=== PATIENT | female | born 1970 | race Caucasian/White ===

== ENCOUNTER 2017-12-14 09:31 | Outpatient (CLI) | payer BC ==
--- NOTE | 2017-12-14 11:17 | ULT ---
THYROID ULTRASOUND: INDICATIONS: Thyroid disease. Neck pain. COMPARISON: No prior comparison. FINDINGS: The right thyroid length is 3.3 cm, and the left thyroid length is 3.5 cm. There is a hypoechoic, so lid appearing nodule involving the lower aspect of the left thyroid lobe, measuring 6 mm. The thyroi d isthmus is 2 mm in thickness. IMPRESSION: Subcentimeter hypoechoic nodule in the left thyroid lobe. No dominant thyroid nodule is evident. POS: [facility]
--- NOTE | 2017-12-14 11:30 | ULT ---
PELVIC ULTRASOUND: Date: 12/14/17 HISTORY: Menorrhagia. COMPARISON: None. TECHNIQUE: Transabdominal and endovaginal imaging of the pelvis performed. Ovaries are interrogated with Stanley sc ana lilia, color flow, Doppler imaging, and spectral waveform analysis. FINDINGS: The uterus is identified, measuring 6.6 x 9.7 x 15.8 cm. There is heterogeneity throughout the myomet rium. There is a solid echotexture mass in the uterus measuring 6.9 x 7.0 x 8.8 cm. Evaluation of the endometrium is suboptimal. Ovaries are only appreciated on the transabdominal images. Right ovary measures 2.9 x 3.1 x 2.9 cm. Left ovary measures 3.3 x 2.5 x 3.1 cm. Note is made of a complex nabothian cyst measuring 1.2 cm. There is no free fluid. Ovarian Doppler: There is vascular flow to left and right ovary on transabdominal imaging. IMPRESSION: 1. Enlarged uterus. 2. Uterine leiomyoma as described above. Better evaluation with pelvic MRI and INSTRUCTIONAL SUPPORT SPECIALIST consultation is r ecommended. POS: [facility]
== END 2017-12-14 09:32 | disposition home or self-care (01) ==
LOC: SCSULT 09:31
PROVIDERS: ATTEND Nurse Practitioner Family
DX: N92.0 Excessive and frequent menstruation with regular cycle (principal); M54.2 Cervicalgia; K21.0 Gastro-esophageal reflux disease with esophagitis; E07.9 Disorder of thyroid, unspecified; E66.9 Obesity, unspecified; R11.0 Nausea; R53.82 Chronic fatigue, unspecified; N85.2 Hypertrophy of uterus; D25.9 Leiomyoma of uterus, unspecified; E04.1 Nontoxic single thyroid nodule
CPT/HCPCS: 76536; 76856

== ENCOUNTER 2018-01-15 09:24 | Outpatient (CLI) | payer BC, OTHER ==
[2018-01-15] MEDS ORDERED: ISOVUE-370 76%-LOCM 1 ML ONE (15:01)
== END 2018-01-15 09:25 | disposition home or self-care (01) ==
LOC: BICMAMMO 09:24
PROVIDERS: ATTEND Nurse Practitioner Family
DX: E78.5 Hyperlipidemia, unspecified (principal); E55.9 Vitamin D deficiency, unspecified; N92.0 Excessive and frequent menstruation with regular cycle; K21.0 Gastro-esophageal reflux disease with esophagitis; E66.9 Obesity, unspecified; E07.9 Disorder of thyroid, unspecified; R11.0 Nausea; R53.82 Chronic fatigue, unspecified; D73.89 Other diseases of spleen; D25.9 Leiomyoma of uterus, unspecified; Z80.0 Family history of malignant neoplasm of digestive organs
CPT/HCPCS: 71250; 71260; 74177; 77063; 77067

== ENCOUNTER 2018-01-21 14:44 | Outpatient (CLI) | payer BC | END 2018-01-21 14:45 | disposition home or self-care (01) | LOC: BICULT 14:44 | PROVIDERS: ATTEND Nurse Practitioner Family | DX: R59.0 Localized enlarged lymph nodes (principal) ==

== ENCOUNTER 2018-02-11 10:36 | Outpatient (CLI) | payer BC ==
[2018-02-11 11:33] LABS: Hemoglobin 13.8 g/dL (12.0-16.0); Mean Corpuscular HGB CONC 34.3 g/dL (32.0-36.0); Mean Corpuscular Hemoglobin 29.7 pg (27.0-31.0); Mean Corpuscular Volume 86.7 fl (81.0-99.0); Mean Platelet Volume 7.2 fL (7.4-10.4); Platelet Count 220 thou/uL (130-400); RBC Distribution Width 11.7 % (11.5-14.5); Red Blood Cell (RBC) Count 4.64 mill/uL (4.20-5.40); White Blood Cell (WBC) Count 6.6 thou/uL (4.8-10.8)
== END 2018-02-11 10:37 | disposition home or self-care (01) ==
LOC: LABBT 10:36
PROVIDERS: ATTEND Obstetrics & Gynecology
DX: Z01.812 Encounter for preprocedural laboratory examination (principal); D25.9 Leiomyoma of uterus, unspecified; N92.0 Excessive and frequent menstruation with regular cycle
CPT/HCPCS: 85027; 86850; 86900; 86901

== ENCOUNTER 2018-02-11 11:00 | Inpatient (IN) | payer BC ==
[2018-02-11 11:29] VITALS: BMI 26.5
--- NOTE | 2018-02-11 13:47 | HP ---
DATE OF PLANNED PROCEDURE: 02/12/2018 PREOPERATIVE DIAGNOSES: Abnormal uterine bleeding and fibroid uterus. PROCEDURES TO BE PERFORMED: Robotic-assisted total laparoscopic hysterectomy with bilateral salpinge ctomy, possible ExCITE procedure for extracorporeal morcellation. HISTORY OF PRESENT ILLNESS: Ms. Estrella Young is a 47-year-old , who was referred to me from Sheryl Lin last month for abnormal uterine bleeding and an enlarged uterus. The patient gave a 6-month history of change in her menstrual cycles. She reports her menses last 3-9 days, are very heavy. Sh shea soaks through pads and tampons at the same time and she soaks through them so fast she cannot leave her house during her menstrual cycle. The patient also reports routine menstrual accidents on her c ycle. She also complains of constant spotting even when she is not on her menstrual cycle. She augustina yed treatment and evaluation of this condition, as she was taking care of her , who had a rece nt diagnosis and treatment for colon cancer. The patient reports she is now ready for definitive man agement. The patient had a CT scan that showed an enlarged uterus, some questionable lesions on the spleen, which have since been evaluated and cleared by GI. The patient also had an ultrasound with a large fibroid uterus with images suspicious for degenerating fibroid with the fibroid is fundal and measuring approximately 8 x 8 cm. The uterus, otherwise, total length is approximately 12 cm long an d 9 cm wide. On ultrasound, the right and left adnexa appear normal. PAST MEDICAL HISTORY: Hyperlipidemia, hypothyroidism, diabetes. PAST SURGICAL HISTORY: Appendectomy and 2 C-sections. OBSTETRICAL HISTORY: Two sections. GYNECOLOGIC HISTORY: Most recent Pap smear 2017, negative for intraepithelial lesion or malignancy a nd negative for HPV. No history of STD or PID. SOCIAL HISTORY: The patient is not a smoker. She does not drink alcohol or consume drugs. She is m arried and sexually active. ALLERGIES: No allergies to latex. No medication allergies known. FAMILY HISTORY: Significant for diabetes in her mother, stroke in her father, colon cancer in her fa ther, and breast cancer in her mother. REVIEW OF SYSTEMS: Negative except per HPI. PHYSICAL EXAMINATION: VITAL SIGNS: Blood pressure 134/88, weight 170 pounds, BMI 34. GENERAL: No acute distress. Alert and oriented. CARDIOVASCULAR: Regular rate and rhythm. LUNGS: Nonlabored breathing. ABDOMEN: Soft, nontender, no obvious palpable masses, no hepatosplenomegaly. GENITOURINARY: Normal external female genitalia. Normal urethral meatus, normal vaginal mucosa, no cervical lesions. Uterus is enlarged, axial position, nontender, mobile. No adnexal masses. Perine um normal. MUSCULOSKELETAL: Normal. NEUROLOGIC: Grossly normal. SKIN: Normal. DIAGNOSTIC STUDIES: Ultrasound with uterus approximately 12-13 cm in length and 9 cm wide with a dom inant 8 x 8 cm fundal fibroid with characteristics of a degenerating fibroid noted. Endometrial biop sy benign endometrium with stromal breakdown, no malignancy noted. Pap smear 2018 negative with nega tive HPV. ASSESSMENT AND PLAN: Ms. Young is a 47-year-old with abnormal bleeding and a large fibroid uterus, w ho desires definitive management with a hysterectomy and bilateral salpingectomy. The risk of the pr ocedures had been described to her, the risks are to include, but not limited to bleeding, infection, need for blood products, possible emergent laparotomy, which would include extended recovery time. Other risks include damage to the intraabdominal organs or pelvic organs, inability to fully diagnose and treat all conditions at the time of surgery, and possible need for future medical or surgical ma nagement. The patient and her 's questions have been answered to their satisfaction, and she desires to proceed with the procedure as listed above. In addition, she has been offered and after school counselor ed for genetic screening by myself as well as Dr. Ferrer and at this time is awaiting genetic after school counselor ing.
[2018-02-12] MEDS ORDERED: CEFAZOLIN/Water 2 GM/20 ML SYRINGE ONE (10:21)
[2018-02-12] MEDS ORDERED: Gabapentin 300 MG CAP ONE (10:21)
[2018-02-12] MEDS ORDERED: CeleCOXIB 100 MG CAP ONE (10:32)
[2018-02-12] MEDS ORDERED: CeleCOXIB 100 MG CAP PO SCH (10:45)
[2018-02-12] MEDS ORDERED: Fentanyl 100 MCG/2 ML VIAL ONE ×2 (10:45→12:07)
[2018-02-12] MEDS ORDERED: Midazolam HCl 2 mg/2 ml Vial ONE ×2 (10:45→12:07)
[2018-02-12] MEDS ORDERED: Famotidine/PF 20 mg/2ml Vial ONE (11:58)
[2018-02-12] MEDS ORDERED: Fentanyl 250 MCG/5 ML VIAL ONE (12:07)
[2018-02-12] MEDS ORDERED: Ketamine 50 MG/ML VIAL ONE (12:18)
[2018-02-12] MEDS ORDERED: Bupivacaine/Epinephrine 0.25% 30 ML VIAL ONE (13:43)
[2018-02-12] MEDS ORDERED: Albumin 5% 500 ML ONE (13:43)
[2018-02-12] MEDS ORDERED: Promethazine HCl 25 MG/ML VIAL SLOW IVP PRN (14:39)
[2018-02-12] MEDS ORDERED: Meperidine HCl/PF 25 MG/ML VIAL SLOW IVP PRN (14:39)
--- NOTE | 2018-02-12 15:39 | CON ---
DATE OF CONSULTATION: 02/12/2018 REASON FOR CONSULT: Intraoperative consultation for bladder injury. CONSULTING PROVIDER: Dr. Ignacio Haile. HISTORY OF PRESENT ILLNESS: Ms. Young is a 47-year-old female, , with prior x2 undergoing robotic-assisted laparoscopic hysterectomy. There were dense adhesions along the uterine vesicle space, upon dissecting the uterus, vaginal cuff. There was inadvertent injury at the posterior wall of the bladder. Urologic consultation obtained secondary to bladder injury. PAST MEDICAL HISTORY: Hyperlipidemia, hypothyroidism, diabetes. PAST SURGICAL HISTORY: 1. Appendectomy. 2. x2. SOCIAL HISTORY: Negative x3. ALLERGIES: No known drug allergies. PHYSICAL EXAMINATION: Patient currently has a robot docked, gynecology is finishing up her hysterectomy closing her vaginal cuff. Inspection under robot console demonstrates a posterior dome bladder defect approximately 3-4 cm. See my full OP note for intraoperative findings. IMPRESSION AND PLAN: Ms. Young is a 47-year-old female with history of abnormal bleed secondary to large uterine fibroids. Urologic consultation secondary to iatrogenic bladder injury. will proceed with repair, see op note for full details. MTDD
[2018-02-12] MEDS ORDERED: Succinylcholine Chloride 20 MG/ML 10 ml SYRINGE FS ONE (16:20)
[2018-02-12] MEDS ORDERED: PHENYLEPHRINE-NS 100 MCG/ML 10 ML SYRINGE ONE (16:20)
[2018-02-12] MEDS ORDERED: Ondansetron HCl/PF 4 MG/2 ML Vial ONE (16:20)
[2018-02-12] MEDS ORDERED: Esmolol 100 MG/10 ML VIAL ONE (16:20)
[2018-02-12] MEDS ORDERED: Dexamethasone 20 MG/5 ML VIAL ONE (16:20)
[2018-02-12] MEDS ORDERED: Lidocaine 1% PF 5 ML VIAL ONE (16:20)
[2018-02-12] MEDS ORDERED: PROPOFOL 200 MG/20 ML VIAL ONE (16:20)
[2018-02-12] MEDS ORDERED: Glycopyrrolate 0.2 MG/ML 5 ML SYRINGE ONE (16:20)
[2018-02-12] MEDS ORDERED: Bupivacaine HCl 0.5%/Epinephrine 1:200,000/PF 30 ml Vial ONE (16:24)
[2018-02-12] MEDS ORDERED: Ketorolac Tromethamine 30 MG/ML VIAL IVP SCH (18:00)
[2018-02-12] MEDS ORDERED: diphenhydrAMINE 25 MG CAP PO PRN (18:11)
[2018-02-12] MEDS ORDERED: Zolpidem Tartrate 5 MG TAB PO PRN (18:11)
[2018-02-12] MEDS ORDERED: traMADol HCl 50 MG TAB PO PRN (18:11)
[2018-02-12] MEDS ORDERED: Bisacodyl 10 MG SUPP PR PRN (18:11)
[2018-02-12] MEDS ORDERED: Promethazine HCl 25 MG/ML VIAL IM PRN (18:11)
[2018-02-12] MEDS: Morphine 4 MG/ML VIAL SLOW IVP PRN (18:22)
--- NOTE | 2018-02-12 18:38 | OP ---
DATE OF PROCEDURE: 02/11/2018 PREOPERATIVE DIAGNOSIS: Bladder injury. POSTOPERATIVE DIAGNOSIS: Bladder injury. PROCEDURE: Robotic-assisted laparoscopic bladder repair. SURGEON: Eryn Holliday D.O. ANESTHESIA: General. COMPLICATIONS: None apparent. Drains : Circular drain to lower quadrant 1 20 Swedish three-way 30 mL Pradhan catheter to gravity, CBI port plugged INDICATIONS FOR THE PROCEDURE: Ms. Young is a 47-year-old female undergoing robotic-assisted laparoscopic hysterectomy, there were dense adhesions found along the posterior dome of the bladder, iatrogenic bladder injury of 3-4 cm bladder defect noted. Urologic consultation secondary to above. DESCRIPTION OF THE PROCEDURE: Patient currently undergoing repair of her vaginal cuff. I did take over the console of robot inspecting her pelvis. At the posterior wall dome region, there is a defect approximately 3-4 cm transverse cystotomy. The vaginal cuff has been closed by Gynecology. Inspection of the intraluminal bladder demonstrates trigone is well away from the defect, bilateral clear efflux of urine is noted. At this time, the preexisting Pradhan catheter was removed , to evaluate the bladder intraluminal daily. Bladder defect was closed in 2 layers, initial layer with the mucosa closed with 2-0 chromic in a continuous fashion, second layer closed with 2-0 Vicryl imbricating. A new Pradhan catheter 20 Swedish three-way was placed, balloon with 30 mL of sterile water and approximately 250 mL was filled with no evidence of leak noted. Drain in the pelvic region is recommended after uterus is been delivered. I recommended interposition with omentum or peritoneal flap between the overlying sutures of the bladder cystotomy suture line and the vaginal cuff closure. Instead Interceed adhesion barrier was placed by gynecology between the suture line/with FloSeal subsequently. Patient will need to be monitored for VV fistula formation, as this is best prevented with biologic interposition. MTDD
[2018-02-12] MEDS: Lactated Ringer's 1,000 ML IV SCH (20:12)
[2018-02-12] MEDS: Sodium Chloride 0.9% 1,000 ML IV SCH (20:30)
[2018-02-12] MEDS: Docusate 100 MG CAP PO SCH (20:33)
[2018-02-12] MEDS: Ondansetron HCl/PF 4 MG/2 ML Vial IVP PRN (20:33)
[2018-02-12] MEDS ORDERED: Ibuprofen 800 MG TAB PO SCH (22:00)
--- NOTE | 2018-02-12 22:02 | PDOC.EVN ---
Event Note - Event Note Event Note: POD#0 S: pt reports she feels very well, had some mild nausea w liquids but had a cracker, no fever/chills, no questions about surgery today O: Vital Signs (12 hours) Temp Pulse Resp BP Pulse Ox 02/12/18 20:58 99.0 F 105 H 18 134/67 95 02/12/18 20:49 89 18 123/65 99 02/12/18 18:50 85 121/65 98 02/12/18 18:44 98.3 F 95 18 126/66 96 02/12/18 18:13 97.8 F 94 20 117/67 95 02/12/18 17:42 98.5 F 95 20 116/63 92 L Weight Weight 150 lb Gen: A and O, NAD Lungs: nonlabored breathing Abd: nondistended, appropriate TTP, incision CDI x 4, JASBIR w min fluid noted/ serosang Ext: SCDs to BLE A/P: POD #0 RATLH/BS w repair of incidental cystotomy. Overall doing very well and pt with out concerns. Discussed plan of care, possible DC tomorrow afternoon if post op goals are met and pt OK w DC per urology. Post op plans include poss JASBIR DC prior to DC vs DC in our office Sunday, levoquin 500mg Q day and ricks to gravity until removed by urology.
--- NOTE | 2018-02-12 22:41 | OP ---
DATE OF PROCEDURE: 02/12/2018 PROCEDURES PERFORMED: 1. Robotic-assisted total laparoscopic hysterectomy with bilateral salpingectomy, extracorporeal [place] rine morcellation through self-contained bag. 2. Repair of incidental cystotomy. SURGEON: Ignacio Haile DO OVEN ROASTER: Dick Almaguer MD INTRAOPERATIVE CONSULT: Eryn Holliday DO, Urology. ANESTHESIA: GETA with tap block prior to case. ESTIMATED BLOOD LOSS: 75 mL URINE OUTPUT: 100 mL approximately. COMPLICATIONS: Incidental cystotomy repaired by Urology. INTRAOPERATIVE FINDINGS: 1. Large fibroid uterus that sounds to 14 cm with a dominant 8-cm fundal fibroid. 2. Normal appearing tubes and ovaries bilaterally. 3. Vaginal cuff hemostatic. 4. Approximate 2-1/2 to 3-cm bladder cystotomy repaired in [address] Holl[address]. PROCEDURE DETAILS: The patient was taken back to the OR with IV fluids running. Once she was in the operating room, she was placed in dorsal supine position and general anesthesia was obtained. Of no te, the patient received a tap-block procedure prior to the start of the case. Once the patient was asleep, she was placed in low dorsal lithotomy position and the abdomen and vagina were prepped and d raped in normal fashion for gynecologic surgery. A Pradhan catheter was placed into the bladder, which drained approximately 50 mL of urine and the Pradhan tip was then attached to Ivet Syringe for bladd er manipulation during the case. An operative speculum was placed into the vagina, a single-tooth te naculum was used to grasp the anterior lip of the cervix. Cervix was serially dilated and the uterus then sounded to approximately 14 cm. A Dish.fm manipulator was assembled with a 12-cm tip and a 3. 5-cm cup, it was then placed into the uterus and the vagina in normal fashion with intrauterine and i ntravaginal balloons inflated. Once the manipulator was then placed, the operative speculum and sing le tooth tenaculum were removed. The surgeon's gloves were changed and attention was turned to lapar oscopic portion of the case. Beginning approximately 2 cm above the umbilicus, a 12-mm vertical inci jose luis was made. The skin incision was made with the scalpel. A Veress needle was then placed through this incision and the abdomen was insufflated without difficulty. Once the abdomen was insufflated, a 12-mm trocar was placed through this incision. The laparoscope was then placed through this port with the above findings noted. At this point, the decision was made to extend the fascial layer of t he supraumbilical incision as bag morcellation would be necessary to complete a minimally invasive hy sterectomy. The laparoscope was removed. The fascia was extended the full length of the 3-cm skin i ncision and a mini Nazario retractor was placed through this incision. Once the Nazario retractor was placed and the retractor was inspected and noted to be against the abdominal wall. The GelPOINT was assembled over the retractor and the abdomen was reinsufflated. A 12-mm trocar was through the GelPO INT at the supraumbilical incision to be used as the camera port. With the camera reinserted through the trocar to the GelPOINT, the left and right lower quadrant 8 mm trocars were placed under direct visualization as well as a right upper quadrant 11-mm trocar. Once all 4 trocars were placed, the ro botic arms were docked and the instruments were placed under laparoscopic view into the field of diss ection. While the uterus was large, it was noted to be very mobile and the cervix could be visualize d as well as the uterine arteries and ureters. Beginning on the patient's left side, the left fallop so tube was elevated, it was cauterized and transected from the uterus and removed from the operativ e field for pathologic review. Once the left fallopian tube was removed, the left utero-ovarian liga ment was cauterized and transected, freeing the left ovary from the uterus that can fall away to the pelvic sidewall. The left round ligament was then cauterized and transected. It was then divided in to anterior and posterior leafs down towards the level of the uterine artery. Next, the anterior nicole f of the broad ligament was taken down towards the cervical vaginal junction. The bladder was back f illed with normal saline and the margins of the bladder were visually identified and the bladder flap on the patient's right side was dissected down layer by layer until the cervix was reached. Next, a ttention was turned to the patient's contralateral side. In similar fashion, the right fallopian tub e was transected and removed. The right utero-ovarian ligament was cauterized and transected, freein g the right ovary from the uterus. The right round ligament was cauterized and transected, it was th en divided into anterior and posterior leafs and dissected down towards the level of the uterine evert ry. After the uterine artery had been skeletonized. The bladder flap was taken down on the patient' s right side, the adhesions of the bladder to the uterus were noted to be asymmetric with dense adhes ions of the bladder to the cervix on the patient's right side. The monopolar scissors were used to f inally dissect some of the adhesions down on the patient's right side to allow for adequate dissectio n around the uterine artery. Once these were taken down and the uterine artery fully visualized, it was cauterized and transected. Attention was then turned to the contralateral side where the uterine arteries on the patient's left side were cauterized and transected. Once the blood supply had been taken down, attention was turned anteriorly to completing the bladder dissection. The bladder was ag ain backfilled with the margins of the bladder adhesions noted to be asymmetric with dense scarring o n the patient's right side. While special attention and care was given to dissecting the bladder nathaniel y from the cervix and the planned colpotomy site, an incidental cystotomy was created. Immediately t he Pradhan tip was visualized and the urologist manager implementation, Dr. Eyrn Holliday was notified. She was m marc aware of the cystotomy in our plan to complete the hysterectomy portion of the procedure when she would present later to help us complete the cystotomy repair. After she was notified, the remaining portion of the bladder adhesions were taken down off the cervix and the planned colpotomy site with the rest of the bladder dissected well away from the planned colpotomy site, the colpotomy was perfor med by using monopolar scissors circumferentially around the cervix. Once this was completed, intrau terine balloon was deflated, the vaginal balloon was deflated, and the MIMI manipulator was removed f rom the surgical field. The uterine specimen was left in the abdominal cavity until it could later b e placed into the self-containing bed for morcellation. The surgical pedicles and vaginal cuff were irrigated and any small areas of bleeding were controlled with the bipolar fenestrated grasper. The needle corporate driver was introduced into the surgeon's right hand after the monopolar scissors were removed. A Stratafix suture was placed into the operating field and the vaginal cuff was closed in 2 layers with good hemostasis noted. After the vaginal cuff was closed, Dr. Holliday presented for evaluat ion of the cystotomy. Please see her dictation for full details of the cystotomy repair, which she c ompleted by closing the cystotomy in 2 layers. We also discussed intraoperative measures to decrease the risk of complications from the cystotomy including placement of adhesion barrier, placement of h emostatic agents, and possible graft with omental tissue. She did spend some time trying to access o mental tissue; however, the limits of the anatomy and the positioning of the patient for hysterectomy made this difficult to accomplish without placing increased risk on the patient. For this reason, lisa valdivia placed an Interceed layer between the vaginal cuff and the bladder. The Interceed filled the space very well and we felt that it would remain in place for the appropriate amount of time. Next, the c amera was temporarily undocked. The specimen bag was placed through the supraumbilical incision. Th e camera was redocked and the abdomen reinsufflated. The bag was positioned next to the uterine spec imen and opened, the uterus and cervix were then placed into the bag. The bag was then cinched close d and the bag marker was then retracted up through the supraumbilical incision site. Once the hyster ectomy portion of the procedure and cystotomy repair were complete, the robotic arms were undocked. The GelPOINT was removed from the supraumbilical incision and the specimen bag was brought up through 3-mm incision. A plastic guard was placed to protect the skin and extracorporeal morcellation was c ompleted, removing the uterus and fibroid specimen entirely to the self-contained bag. Once morcella tion portion of the procedure was completed and the bag and Nazario retractors were removed, the 12-mm trocar was placed back through the supraumbilical incision. The abdomen was reinsufflated and FloSe al was placed under direct visualization over the vaginal cuff and cystotomy repair. Of note, no blo od was noted to have accumulated within the pelvis or other fluid noted to have accumulated in the pe lvis. Prior to the completion of the case, a JASBIR-drain was placed into the cul-de-sac at the request of Dr. Holliday. After this was placed, all instruments were removed from the abdomen. The instr ument and sponge counts were correct x2. The patient was taken out of Trendelenburg position. The f ascia was closed at the supraumbilical incision with Vicryl suture. All 4 skin incisions were closed with 4-0 Monocryl with the exception of the right lower quadrant, which was partially closed with 4- 0 Monocryl and a stay suture placed around the drain. The patient tolerated the procedure well. At the end of the case, the vagina was inspected with no bleeding noted. The Pradhan catheter was drainin g clear urine. The patient was cleaned, dried, taken out of lithotomy position and extubated. She w as then sent to recovery room in good condition. Postoperative findings as well as the cystotomy wer e discussed with her family members in detail. We discussed the need for the Pradhan to stay in the bl adder postoperatively per urology's recommendations. We also discussed testing that would be done pr ior to the discontinuation of the Pradhan. The patient's family members' questions were answered.
[2018-02-13] MEDS: Morphine 4 MG/ML VIAL SLOW IVP PRN ×2 (01:18→08:35)
[2018-02-13] MEDS: Lactated Ringer's 1,000 ML IV SCH (03:54)
[2018-02-13] MEDS: Sodium Chloride 0.9% 1,000 ML IV SCH (04:39)
[2018-02-13 05:45] LABS: Hemoglobin 11.6 g/dL (12.0-16.0); Mean Corpuscular HGB CONC 34.5 g/dL (32.0-36.0); Mean Corpuscular Hemoglobin 29.9 pg (27.0-31.0); Mean Corpuscular Volume 86.7 fl (81.0-99.0); Mean Platelet Volume 7.1 fL (7.4-10.4); Platelet Count 179 thou/uL (130-400); RBC Distribution Width 11.6 % (11.5-14.5); Red Blood Cell (RBC) Count 3.87 mill/uL (4.20-5.40); White Blood Cell (WBC) Count 9.9 thou/uL (4.8-10.8)
[2018-02-13 06:02] LABS: Anion Gap 10 mmol/L (10-20); BUN (Urea Nitrogen) 7 mg/dL (7.0-18.7); Calc. Creatinine Clearance 103 mL/min (70-130); Calcium 8.7 mg/dL (7.8-10.44); Carbon Dioxide 24 mmol/L (22-29); Chloride 106 mmol/L (98-107); Estimated GFR-MDRD 86; Glucose 129 mg/dL (70-105); Potassium 4.2 mmol/L (3.5-5.1); Sodium 136 mmol/L (136-145)
[2018-02-13] MEDS: Ondansetron HCl/PF 4 MG/2 ML Vial IVP PRN (06:05)
[2018-02-13] MEDS ORDERED: Metoclopramide HCl 10 MG/2 ML VIAL IVP PRN (08:27)
[2018-02-13] MEDS ORDERED: Acetaminophen 1,000 MG in Premix Bag 1 BAG IVPB PRN (09:33)
[2018-02-13] MEDS ORDERED: Sodium Chloride 0.9% 1,000 ML IV SCH (09:45)
[2018-02-13] MEDS ORDERED: Scopolamine 1.5 mg/72 hour Patch TD SCH (10:00)
[2018-02-13] MEDS ORDERED: Lactated Ringer's 1,000 ML IV SCH (10:00)
[2018-02-13] MEDS ORDERED: Pantoprazole 40 MG VIAL IVP SCH ×2 (10:02→10:30)
[2018-02-13 10:05] LABS: Hemoglobin A1c 6.3 % (4.0-6.0)
[2018-02-13] MEDS ORDERED: Cepastat Lozenges 1 LOZ PO PRN (10:05)
--- NOTE | 2018-02-13 10:29 | PRG ---
DATE OF SERVICE: 02/13/2018 TIME: 9:30 a.m. SUBJECTIVE: The patient is resting comfortably. She has had significant nausea and vomiting overnig ht, uncontrolled with Zofran. She this morning received some IV Phenergan and IV morphine and that h elped her to sleep and she is currently not nauseous. She states her pain is well controlled. She h as not passed any flatus. She has more bothersome pain in her chest and a sore throat. She has no p alpitations or shortness of breath. She was previously on O2 overnight and this has been weaned, sat s are 96%. However, the patient is slumped down in the bed. She has been unable to tolerate liquids or crackers at this point. OBJECTIVE: VITAL SIGNS: T-max and T-current are 99.5. Pulse is 74, respirations 16, sats 96% on room air, bloo d pressure 106/61. I&O is intake 1525, output total of 1280 including 180 mL of serosanguineous flui d from the right lower quadrant JASBIR drain, 900 mL of urine. GENERAL: No acute distress, alert and oriented x3. HEART: Regular rate and rhythm. LUNGS: Slightly decreased breath sounds in the bilateral basilar lung bilaterally. ABDOMEN: Soft and appropriately tender, nondistended. Bowel sounds are decreased. Incisions are cl criselda, dry, and intact with a JASBIR drain in the right lower quadrant. EXTREMITIES: SCDs in place. No edema, cyanosis or clubbing. LABORATORY DATA: Hemoglobin this morning is 11.6, hematocrit 33.6, platelets 179, white count 9.9. Blood sugars have been 171, 169 and fasting this morning was 129, creatinine is 0.72. ASSESSMENT AND PLAN: This is a 47-year-old status post robotic assisted total laparoscopic hysterect anival, bilateral salpingectomy with incidental cystotomy status post repair. Her vital signs are stabl e and within normal limits. 1. Hemoglobin appropriate postoperatively. No evidence of ongoing bleeding or anemia. 2. Gastrointestinal. The patient is unable to tolerate liquids. We will continue IV hydration and place a scopolamine patch, I have also written for richard Dickerson and her home Protonix. She will be advanced to clears once she is not nauseous and can be advanced as tolerated. I discussed with the p atient that ambulation will help with return to GI function. She is also on Colace b.i.d. for a supriya l regimen. 3. : Status post repair by Dr. Holliday, will discuss with her plan regarding JASBIR drain and disc harge, will be for prolonged catheterization for healing and she is on prophylactic p.o. Levaquin; amanda albright, is not tolerating this at this time, may need an IV dose for today's dosing. She is also star rod on Myrbetriq 50 mg for bladder spasms. 4. Endo: Type 2 diabetes, previously controlled on diet. However, recently had been restarted on m etformin. I have checked a hemoglobin A1c. Sugars are okay. At this point, we will use sliding sca le insulin if needed. 5. Respiratory: I feel the patient has some atelectasis. Encourage incentive spirometer use as wel l as ambulation for this. I discussed risk of pneumonia if prolonged immobilization. 6. Pain: Will use IV Tylenol and p.r.n. Tylenol #3 and tramadol once the patient is tolerating p.o. , well controlled. 7. Sequential compression devices currently in place, ambulate for DVT prophylaxis. 8. Continue current inpatient care.
[2018-02-13] MEDS: Docusate 100 MG CAP PO SCH ×2 (10:31→21:51)
--- NOTE | 2018-02-13 12:05 | PRG ---
DATE OF SERVICE: 02/13/2018 SUBJECTIVE: Pain is adequately controlled, did have an episode of emesis, + nausea. PHYSICAL EXAMINATION: VITAL SIGNS: Stable, 99.5, 74, 16, 106/61. I's and O's. JASBIR output 180. Urine output is clear, 900. ABDOMEN: Soft. No rigidity, no rebound. GENITOURINARY: Catheter draining clear dilute urine. JASBIR is serosanguineous. PERTINENT LABORATORY DATA: Creatinine 0.72. White count 9.9, 11.6 hemoglobin, preop hemoglobin is 13.8. IMPRESSION AND PLAN: Ms. Young is a 47-year-old female with history of dysfunctional bleed secondary to large uterine fibroid, status post robotic assisted laparoscopic hysterectomy, BSO, urologic consultation obtained intraoperatively due to iatrogenic bladder injury, POD#1 status post laparoscopic robotic-assisted repair. Urine output is clear. I did hold her Motrin and Toradol as recently underwent bladder repair to prevent gross hematuria and clot retention. As her pain is controlled with current regimen, I would continue pain management as is. Decrease in H&H, likely multifactorial. continue to monitor JASBIR output. Recommend follow up CBC. Postoperative ileus. Recommend continuation of clear liquid diet, patient to be out of bed. Will need followup cystogram in 2-3week interval prior to catheter removal. I will manage her JASBIR and will remove when clinically indicated, will check JASBIR creatinine prior to removal. MTDD
[2018-02-13] MEDS: Acetaminophen/Codeine 30-300mg Tablet PO PRN ×3 (12:30→21:50)
[2018-02-13] MEDS ORDERED: Ondansetron ODT 4 MG TAB PO PRN (17:12)
[2018-02-13] MEDS: Simethicone Chewable 80 MG TAB PO PRN (17:17)
[2018-02-14 04:56] LABS: #Eosinphils 0.1 thou/uL (0.0-0.7); #Lymphocytes 1.9 thou/uL (1.20-3.40); #Monocytes 0.5 thou/uL (0.11-0.59); #Neutrophils 4.2 thou/uL (1.40-6.50); %Basophils 0.2 % (0.0-1.0); %Lymphocytes 28.1 % (21.0-51.0); %Monocytes 7.9 % (0.0-10.0); %Neutrophils 61.8 % (42.0-75.0); Hemoglobin 11.2 g/dL (12.0-16.0); Mean Corpuscular HGB CONC 33.5 g/dL (32.0-36.0); Mean Corpuscular Hemoglobin 29.4 pg (27.0-31.0); Mean Corpuscular Volume 87.6 fl (81.0-99.0); Mean Platelet Volume 6.9 fL (7.4-10.4); Platelet Count 175 thou/uL (130-400); RBC Distribution Width 11.8 % (11.5-14.5); Red Blood Cell (RBC) Count 3.83 mill/uL (4.20-5.40); White Blood Cell (WBC) Count 6.7 thou/uL (4.8-10.8)
[2018-02-14] MEDS ORDERED: Levothyroxine Sodium 25 MCG TAB PO SCH (06:00)
[2018-02-14] MEDS: Acetaminophen/Codeine 30-300mg Tablet PO PRN ×2 (06:28→12:39)
--- NOTE | 2018-02-14 08:14 | PRG ---
DATE OF SERVICE: 02/14/2018 SUBJECTIVE: The patient is feeling better, has passed gas, tolerating regular diet. OBJECTIVE: VITAL SIGNS: Stable. She is afebrile. I's and O's. JASBIR output 270 over 24 hours last 12 hours 100 mL, previously serosanguineous. It is cleared up, pink tinged. ABDOMEN: Soft, nontender, nondistended. LABORATORY DATA: CBC is stable. Creatinine yesterday was normal at 0.72. IMPRESSION AND PLAN: 1. Ms. Young is a pleasant 47-year-old female postop day #2 status post robotic assisted repair of cystotomy. Pradhan catheter is draining clear yellow urine. This is transitioned to a gravity bag leg bag. The patient instructed regarding leg bag gravity bag use. We will send JASBIR creatinine, if negative, we will pull JASBIR prior to discharge. I discussed with the patient in lengthy detail regarding importance of catheter care; in which no kinking and gravity drainage is advised to expedite healing. 2. Avoid constipation. The patient has limited pain, I do not prefer Tylenol # 3 as due to severe constipating side effects. Pain is controlled with tramadol. She may be discharged with tramadol, Tylenol p.r.n. Recommend discharge with Myrbetriq 50 mg one p.o. daily until followup appointment, please provide #30, ciprofloxacin for a course of 7 days, Colace 100 mg 1 p.o. b.i.d. I will communicate with nursing staff regarding JASBIR creatinine level, if negative for urine leak, recommend JASBIR removal before discharge. Nursing staff will contact me regarding disposition for coordination of follow up with , in which cystogram will be scheduled a.m. of appointment. Addendum: JASBIR creatinine negative therefore removed prior to discharge. follow -up appointment in chart in 2 weeks with cystogram a.m. of appointment. HILARIO
[2018-02-14] MEDS ORDERED: Pantoprazole 40 MG VIAL IVP SCH (09:00)
[2018-02-14] MEDS: Docusate 100 MG CAP PO SCH (09:30)
[2018-02-14 11:49] VITALS: BP 121/74; TEMP 98.1
[2018-02-14] MEDS: Simethicone Chewable 80 MG TAB PO PRN (12:41)
--- NOTE | 2018-02-14 13:36 | DIS ---
DATE OF ADMISSION: 02/12/2018 DATE OF DISCHARGE: 02/14/2018 ADMISSION DIAGNOSES: 1. Uterine fibroids. 2. Abnormal uterine bleeding. DISCHARGE DIAGNOSES: Status post robotic-assisted total laparoscopic hysterectomy, bilateral salping ectomy, extracorporeal morcellation, and repair of cystotomy with JASBIR drain placement by Urology. DISCHARGE CONDITION: Stable. ATTENDING PHYSICIAN: Maude Wilson M.D. CONSULTATIONS: Dr. Holliday with Urology for intraoperative cystotomy and postoperative care. PROCEDURES: As listed in discharge diagnosis. HISTORY AND PHYSICAL: Please see previously dictated H and P. HOSPITAL COURSE: This is a 47-year-old with uterine fibroids and heavy vaginal bleeding, presented t o undergo scheduled surgery as listed above. She had an intraoperative cystotomy encountered and a p rimary repair by Dr. Holliday. Postoperatively, the patient went to the floor. She was initially controlled with IV morphine for pain. She had significant nausea and vomiting on postoperative day 0 to the morning of postoperative day #1. This is finally controlled after Zofran, Reglan, and a sco polamine patch. The patient was able to ambulate without difficulty or signs or symptoms of anemia. She was also able to tolerate liquids and be transitioned to a regular diet on postoperative day #1. Her Pradhan catheter was left in place secondary to cystotomy and she has plans for discharge with Fo naila leg bag and follow up with Dr. Holliday for cystogram in 2-3 weeks. The patient was started o n p.o. Levaquin and Myrbetriq by Dr. Holliday for bladder injury and we will continue this as an o utpatient as well. Her vital signs remain within normal limits except a slightly decreased saturatio n at night and the patient was given incentive spirometer, as it was felt she likely had some atelect asis. She does have a history of type 2 diabetes controlled with diet and her hemoglobin A1c was 6.3 . Her blood sugars were fairly normal during her hospital stay and she was given instructions to mon itor this at home and continue her dietary interventions and follow up with primary doctor should her blood sugar persistently be over 150. Her hemoglobin after surgery was 11.6 and 11.2 on postoperati ve days 1 and 2 respectively. Her chemistries were normal. On the day of discharge, Dr. Holliday melissa a JASBIR drain creatinine level that was 0.66, and she will follow up on this and manage the drain. Her exam was benign. She had a regular rate and rhythm, and her lungs were clear to auscultation. Her abdomen was soft and nondistended with bowel sounds present and appropriate tenderness. Her inc isions were clean, dry, and intact and she had no edema, cyanosis, or clubbing of the extremities. S he is dispositioned for discharge on postoperative day #2 with discharge medications for tramadol, My rbetriq, and Levaquin. She has scheduled appointment with Dr. Haile in [address] Miya dean n 2-3 weeks per the patient and her final pathology is pending at the time of discharge.
== END 2018-02-14 16:20 | disposition home or self-care (01) | DRG 742 ==
LOC: SURG A 02-12 09:43 → 3SE 02-12 17:22
PROVIDERS: ADMIT Obstetrics & Gynecology; ATTEND Obstetrics & Gynecology
PROC: 0UT98ZZ Resection of Uterus, Via Natural or Artificial Opening Endoscopic (ICD-10-PCS; principal; 2018-02-12)
PROC: 0UT78ZZ Resection of Bilateral Fallopian Tubes, Via Natural or Artificial Opening Endoscopic (ICD-10-PCS; 2018-02-12)
PROC: [UNRECOGNIZED PROCEDURE] (2018-02-12)
PROC: 0TQC4ZZ Repair Bladder Neck, Percutaneous Endoscopic Approach (ICD-10-PCS; 2018-02-12)
PROC: 8E0W8CZ Robotic Assisted Procedure of Trunk Region, Via Natural or Artificial Opening Endoscopic (ICD-10-PCS; 2018-02-12)
DX: D25.9 Leiomyoma of uterus, unspecified (principal); S37.23XA Laceration of bladder, initial encounter; E78.5 Hyperlipidemia, unspecified; E03.9 Hypothyroidism, unspecified; E11.9 Type 2 diabetes mellitus without complications; N93.9 Abnormal uterine and vaginal bleeding, unspecified; Z79.84 Long term (current) use of oral hypoglycemic drugs; X58.XXXA Exposure to other specified factors, initial encounter; Y92.234 Operating room of hospital as the place of occurrence of the external cause; Y95 Nosocomial condition
CPT/HCPCS: 36415; 36416; 80048; 82570; 83036; 85025; 85027; 88307; A4216; C9113; J0131; J0670; J1100; J1885; J2001; J2250; J2270; J2405; J2550; J2704; J2765; J3010; P9045; Q0162; S0028

== ENCOUNTER 2018-02-20 16:07 | Observation (INO) | payer BC ==
[~2018-02-20 16:07] MED LIST: ISOVUE-370 76%-LOCM 1 ML ONE; Iopamidol 370 76% 50 ML VIAL FS ONE
[2018-02-20] MEDS ORDERED: Ondansetron ODT 4 MG TAB ONE ×2 (16:36→18:41)
[2018-02-20 16:50] LABS: Bilirubin Negative (Negative); Blood, Urine Large (Negative); Clarity CLOUDY (Clear); Glucose, Urine (Dipstick) Negative (Negative); Leukocyte Small (Negative); Nitrite Negative (Negative); Protein, Urine (Dipstick) 100 mg/dL (Neg-Trace); Specific Gravity, Urine 1.026 (1.002-1.036); Urobilinogen 0.2 mg/dL (0.2-1.0)
[2018-02-20 16:53] LABS: Bacteria/HPF None Seen HPF (None Seen); RBC/HPF GREATER THAN 50-TNTC HPF (0-3); Squamous Epithelial 0-3 HPF (0-3)
[2018-02-20 16:54] LABS: Pathc Cast-AUWi Flag 2.76 (0-2.49)
[2018-02-20 17:02] LABS: Hyaline Casts/LPF 0-3 HYALINE CAST LPF (0-3 Hyaline)
[2018-02-20 17:03] LABS: Other Casts/LPF None Seen LPF (0-3 Hyaline)
[2018-02-20 17:04] LABS: Crystals/HPF RARE CA OXALATE HPF (Negative); Renal Epithelial 0-3 HPF (0-3); Transitional Epithelial 0-3 HPF (0-3)
[2018-02-20 17:05] LABS: #Eosinphils 0.4 thou/uL (0.0-0.7); #Lymphocytes 1.5 thou/uL (1.20-3.40); #Monocytes 1.1 thou/uL (0.11-0.59); #Neutrophils 10.5 thou/uL (1.40-6.50); %Basophils 0.3 % (0.0-1.0); %Eosinophils 2.9 % (0.0-10.0); %Lymphocytes 11.3 % (21.0-51.0); %Monocytes 7.8 % (0.0-10.0); %Neutrophils 77.7 % (42.0-75.0); Hemoglobin 13.2 g/dL (12.0-16.0); Mean Corpuscular HGB CONC 34.3 g/dL (32.0-36.0); Mean Corpuscular Hemoglobin 29.4 pg (27.0-31.0); Mean Corpuscular Volume 85.7 fl (81.0-99.0); Mean Platelet Volume 6.9 fL (7.4-10.4); Platelet Count 262 thou/uL (130-400); RBC Distribution Width 11.5 % (11.5-14.5); White Blood Cell (WBC) Count 13.6 thou/uL (4.8-10.8)
[2018-02-20 17:32] LABS: ALT (SGPT) 7 U/L (8-55); AST (SGOT) 9 U/L (5-34); Albumin 4.1 g/dL (3.5-5.0); Alkaline Phosphatase 68 U/L (40-150); Anion Gap 14 mmol/L (10-20); BUN (Urea Nitrogen) 8 mg/dL (7.0-18.7); Bilirubin, Total 0.6 mg/dL (0.2-1.2); Calc. Creatinine Clearance 0 mL/min (70-130); Calcium 9.4 mg/dL (7.8-10.44); Carbon Dioxide 21 mmol/L (22-29); Chloride 99 mmol/L (98-107); Estimated GFR-MDRD 80; Globulin 3.4 g/dL (2.4-3.5); Glucose 156 mg/dL (70-105); Lipase 9 U/L (8-78); Protein, Total 7.5 g/dL (6.0-8.3); Sodium 130 mmol/L (136-145)
--- NOTE | 2018-02-20 20:07 | CT ---
CT ABDOMEN AND PELVIS WITH IV CONTRAST: 02/20/18 Multiple axial tomograms obtained through the abdomen and pelvis with IV enhancement. INDICATIONS: Abdominal pain. Hysterectomy eight days ago with colostomy repair. Discharged from the hospital on . No comparison studies. The lung bases are clear. There is a 3.5 cm low density lesion along the superior border of the spleen. There are numerous othe r tiny low density foci within the spleen which are mostly subcentimeter with one in the inferior spl een measuring up to 1 cm. The liver and pancreas are unremarkable. Adrenal glands are normal. Kidneys appear normal. Small bowel loops normal caliber. Images through the low abdomen and pelvis reveal inflammatory changes involving the sigmoid colon. Fo naila catheter is in place and bladder is contracted. There is a low density collection in the deep pelvis along the sigmoid which is extraluminal, best ap preciated on coronal images. There are gas pockets within this fluid dense collection. This collectio n measures 3.4 x 1.8 cm in the coronal plane. Considerations include hematoma and abscess. IMPRESSION: 1. Inflammatory changes in the deep pelvis along the sigmoid colon, some of which may be postope rative in nature. There is an extraluminal fluid dense collection with tiny gas pockets present adjac ent to the mid sigmoid. Findings are concerning for developing abscess. 2. There are abnormal low density lesions in the spleen. The largest along the superior margin o f the spleen measures 3.5 cm. These numerous low density foci are concerning for septic emboli. Code T POS: RICK
[2018-02-20] MEDS ORDERED: diphenhydrAMINE 25 MG CAP PO PRN (20:31)
[2018-02-20] MEDS ORDERED: Simethicone Chewable 80 MG TAB PO PRN (20:31)
[2018-02-20] MEDS ORDERED: Ondansetron HCl/PF 4 MG/2 ML Vial IVP PRN (20:31)
[2018-02-20] MEDS ORDERED: Promethazine HCl 25 MG/ML VIAL IM PRN (20:31)
[2018-02-20] MEDS ORDERED: Bisacodyl 10 MG SUPP PR PRN (20:31)
[2018-02-20] MEDS ORDERED: Zolpidem Tartrate 5 MG TAB PO PRN (20:31)
[2018-02-20] MEDS ORDERED: MEROPENEM 1 GM/50 ML 1 GM in Premix Bag 1 BAG IVPB SCH (21:00)
[2018-02-20] MEDS: Ibuprofen 800 MG TAB PO SCH (23:49)
[2018-02-21] MEDS: Piperacillin/Tazobactam 3.375 GM in Sodium Chloride 0.9% 100 ML IVPB SCH ×5 (00:55→23:30)
[2018-02-21] MEDS: Lactated Ringer's 1,000 ML IV SCH ×4 (00:55→18:35)
[2018-02-21 05:02] LABS: Hemoglobin 11.3 g/dL (12.0-16.0); Mean Corpuscular HGB CONC 33.1 g/dL (32.0-36.0); Mean Corpuscular Hemoglobin 28.9 pg (27.0-31.0); Mean Corpuscular Volume 87.1 fl (81.0-99.0); Mean Platelet Volume 6.8 fL (7.4-10.4); Platelet Count 233 thou/uL (130-400); RBC Distribution Width 11.6 % (11.5-14.5); Red Blood Cell (RBC) Count 3.93 mill/uL (4.20-5.40); White Blood Cell (WBC) Count 7.9 thou/uL (4.8-10.8)
[2018-02-21 05:11] LABS: Anion Gap 9 mmol/L (10-20); BUN (Urea Nitrogen) 8 mg/dL (7.0-18.7); Calc. Creatinine Clearance 107 mL/min (70-130); Calcium 8.8 mg/dL (7.8-10.44); Carbon Dioxide 24 mmol/L (22-29); Chloride 106 mmol/L (98-107); Estimated GFR-MDRD 82; Glucose 125 mg/dL (70-105); Sodium 135 mmol/L (136-145)
--- NOTE | 2018-02-21 05:19 | HP ---
DATE OF SERVICE: 02/20/2018 CHIEF COMPLAINT: Abdominal pain, nausea, and vomiting, status post hysterectomy. HISTORY OF PRESENT ILLNESS: This is a 47-year-old, G2, P2, who is status post robotic assisted total laparoscopic hysterectomy with bilateral salpingectomy and repair of incidental cystotomy on 018. She presented to the emergency department this evening with pain, nausea, vomiting, and p.o. in tolerance since Sunday. She reportedly was discharged on a scopolamine patch and following the remov al of that had significant nausea and vomiting. She has been unable to take her antibiotics as presc ribed for her Pradhan catheter. She is able to ambulate and denies any other complaints. REVIEW OF SYSTEMS: Negative for head, eyes, ears, nose, throat, cardiovascular, respiratory, GI, , neuro, psych, musculoskeletal, skin or constitutional symptoms other than mentioned above. PAST MEDICAL HISTORY: 1. Hyperlipidemia. 2. Hypothyroidism. 3. Diabetes. PAST SURGICAL HISTORY: 1. Appendectomy. 2. Two C-sections. 3. TLH as described above. SOCIAL HISTORY: Negative for tobacco, alcohol, or drug abuse. ALLERGIES: No known drug allergies. PHYSICAL EXAMINATION: VITAL SIGNS: Afebrile with stable vital signs. GENERAL: Awake, alert, in no acute distress. CHEST: Nonlabored breathing. ABDOMEN: Soft, tender to palpation in the lower abdomen. No rebound or guarding. Incisions appear without any erythema or signs of infection. IMAGING: CT scan with inflammatory changes in the deep pelvis along the sigmoid colon, a small amoun t of fluid concerning for possible abscess and multiple lesions in the spleen. LABORATORY DATA: WBC 13.6, hemoglobin 13.2, hematocrit 38.6, platelets 262,000, no left shift. Lact ic acid 1.9. Urine with blood and wbc's. ASSESSMENT AND PLAN: A 47-year-old status post robotic hysterectomy, postoperative day #8 with nause a and vomiting and possible postop ileus. She does have a small amount of fluid in the pelvis, which is read out as concerning for abscess, but could also be due to postsurgical changes. She will be p laced on observation and started on Zosyn. She was started on a clear liquid diet as tolerated and w ill receive morphine and ibuprofen for pain. Dr. Haile is aware of the patient and will be seeing he r tomorrow.
[2018-02-21] MEDS: Ibuprofen 800 MG TAB PO SCH ×4 (06:18→23:40)
--- NOTE | 2018-02-21 08:45 | PDOC.EVN ---
Event Note - Event Note Event Note: HD#2 Pt admitted last night for nausea post op. S: nausea that is exacerbated by clear liquids, wants to eat regular diet, passing gas, no BM yet, last one Sunday. History reviewed again, w nausea post op that was controlled w scopolamine patch and she started having N/V when it fell off Sunday evening. Denies any pain, no sick contacts, no vaginal bleeding or discharge. : Vital Signs (12 hours) Temp Pulse Resp BP BP 02/21/18 08:37 98.1 F 80 20 99/58 L 02/21/18 05:00 98.5 F 82 18 101/62 02/20/18 22:00 98.6 F 95 18 109/61 02/20/18 21:45 98.6 F 95 18 109/61 Weight Weight 163 lb 2.273 oz Laboratory Results - last 24 hr 02/21/18 02/21/18 04:23 04:23 WBC 7.9 RBC 3.93 L Hgb 11.3 L Hct 34.2 L MCV 87.1 MCH 28.9 MCHC 33.1 RDW 11.6 Plt Count 233 MPV 6.8 L Sodium 135 L Potassium 4.0 Chloride 106 Carbon Dioxide 24 Anion Gap 9 L BUN 8 Creatinine 0.75 Estimated GFR (MDRD) 82 Glucose 125 H Calcium 8.8 OL NAD A and O X 3 Non labored breathing +BS, active, NTTP, nondistended N ROM A/P: POD # 8 from [facility] w cystotomy repair w nausea post op. No PE findings suggesting of ileus, suspect post op gastroparesis. Will start PPI and reglan, ice chips only, GI consult if doesn't resolve with these measures.
[2018-02-21] MEDS: Famotidine/PF 20 mg/2ml Vial SLOW IVP SCH (08:50)
--- NOTE | 2018-02-21 13:02 | PDOC.EVN ---
Event Note - Event Note Event Note: HD2 follow up visit S; nausea resolved w reglan and famotidine, NPO w ice chips now, feeling "gas moving" and getting hungry O: NAD A and O nonlabored breathing A/P: Postop nausea, idiopathic gastroparesis suspected. Continue observation overnight, advance diet slowly. If nausea persists will consult with Dr. Ferrer.
[2018-02-21] MEDS: Metoclopramide HCl 10 MG/2 ML VIAL IVP SCH ×2 (13:12→22:08)
[2018-02-21 14:12] VITALS: BMI 32.9
--- NOTE | 2018-02-21 18:51 | CON ---
DATE OF CONSULTATION: 02/21/2018 SERVICE: Urology. REASON FOR CONSULTATION: Abdominal pain. HISTORY OF PRESENT ILLNESS: Mrs. Young is a 47-year-old white female who recently underwent a robot- assisted laparoscopic hysterectomy on 02/12/2018. During that time, she had an intraoperative bladde r injury, which was repaired robotically by Dr. Holliday. The patient had a drain postoperatively and a Pradhan catheter and had done well postoperatively. Her drain was removed and she was discharge d home on 02/14/2018. She did well without significant pain until approximately 02/17/2018 to 2017, at which point she started having increasing abdominal pain followed by nausea and vomiting. H er primary complaints were actually nausea and vomiting at that time and she got to the point where s he could not hold any liquids, foods, or her antibiotic down due to persistent vomiting; therefore, s he came into the emergency room on 02/20/2018, at which time, I was consulted by the nurse practition er in the ER. We recommended a CT scan which demonstrated a very small fluid collection that could b e postoperative just around the vaginal cuff, but otherwise no significantly concerning changes or fi ndings. The patient was admitted to the hospital secondary to her persistent nausea and vomiting. S he did have a slight elevation in her white count up to 13.6. Her creatinine was normal at 0.77 with a normal BUN of 8. The patient was slightly hyponatremic with a sodium of 130. The SONOGRAPHY TECHNICIAN service admitted her and started her on Reglan and bowel rest as well as antibiotics with Zosyn and IV fluids . The patient immediately started feeling better and states that she went from having no activity in her abdomen to having rumbling and gas movements along with passing flatus. She is still not able t o tolerate p.o. and states that she becomes extremely nauseated when attempting to eat anything, but she is no longer throwing up consistently like she was before and she is feeling much better. Her ab dominal pain is almost completely gone away and she states that she has not used hardly any pain medi cation prior to coming to the hospital. She denies any fevers or chills, feel slightly lethargic and weak, but otherwise is doing well. She does report flatus, but has not had a bowel movement. She d id have 1 bowel movement on Iron. She denies any dizziness, shortness of breath, chest pain, lower extremity swelling, hematuria, vaginal discharge, vaginal bleeding, clear fluid from the vagina, paolo dder spasms, urgency, leakage around her catheter, problems with catheter drainage. ALLERGIES: None. HOME MEDICATIONS: 1. Nexium. 2. Levaquin. 3. Colace. 4. Myrbetriq. 5. Synthroid. 6. Caltrate plus vitamin D. 7. Bupropion 8. Tylenol with codeine. PAST MEDICAL HISTORY: 1. Hyperlipidemia. 2. Hypothyroidism. 3. Diabetes. PAST SURGICAL HISTORY: 1. Appendectomy. 2. C-sections x2. 3. Robot-assisted laparoscopic total hysterectomy with intraoperative bladder injury and cystotomy r epair. FAMILY HISTORY: Noncontributory. SOCIAL HISTORY: The patient denies tobacco abuse, alcohol use or drug abuse. REVIEW OF SYSTEMS: A 12-point review of systems was reviewed with the patient and the major pertinen t findings noted in the HPI. The remainder of the review of systems was otherwise negative. PHYSICAL EXAMINATION: VITAL SIGNS: Temperature 97.9, pulse 81, respirations 18, blood pressure 108/65, oxygen saturation i s not recorded. GENERAL: No apparent distress, comfortable, communicative, well nourished, well developed, slightly obese. HEENT: Normocephalic, atraumatic. Sclerae are nonicteric. Pupils are symmetric and round. Moist m ucous membranes. Trachea midline. CARDIOVASCULAR: Regular rate and rhythm. Normal S1 and S2. Symmetric pulses. CHEST: No increased work of breathing. Symmetric expansion of lungs, clear anteriorly. ABDOMEN: Soft, nontender, nondistended. No organomegaly. Incisions are clean, dry, and intact. No rebound, guarding or tenderness. No masses. Positive bowel sounds. GENITOURINARY: Pradhan catheter in place, secured with a StatLock with completely clear urine. There does not appear to be any blood at the vaginal entry, does not appear to be any clear discharge in th e vagina. EXTREMITIES: No clubbing, cyanosis or edema. MUSCULOSKELETAL: No joint deformities or joint erythema noted. Full range of motion. SKIN: Warm, dry, good turgor. No rashes or lesions. NEUROLOGIC: Cranial nerves II-XII appear grossly intact. No focal sensory or motor deficits identif ied. PSYCHIATRIC: Alert and oriented x3, appropriate mood and affect. LABORATORY AND X-RAY FINDINGS: The full set of labs are in the [employer] system, which I have reviewshea d. Of note, the patient's current sodium is 135 with a creatinine of 0.75. White count is down to 7 .9 with hemoglobin of 11.3, platelet count of 233. Urinalysis demonstrates 100 protein, greater than 50 rbc's, 11-20 white blood cells, small leukocyte esterase, no bacteria. Urine culture is negative at 12 hours. Blood cultures have no growth to date. CT with IV contrast on 02/20/2018, demonstrate s inflammatory changes in the deep pelvis along the sigmoid colon, some of which may be postoperative in nature. There is an extraluminal fluid dense collection with tiny gas pockets adjacent to the mi d sigmoid, which may be concerning for a possible developing abscess. There are abnormal low density lesions in the spleen, the largest measuring 3.5 cm, possibly concerning for septic emboli. ASSESSMENT AND PLAN: A 47-year-old white female status post robot-assisted laparoscopic total hyster ectomy with intraoperative bladder injury with nausea and vomiting, which probably occurred secondary to an ileus. The patient reported no rumbling, loss of flatus and no bowel movements, starting arou nd Sunday. This seems to have been resolving with the use of Reglan, IV fluids, and antibiotics. It is questionable whether or not the ileus occurred secondary to postoperative changes. Anesthetics, pain medication or due to a possible evolving infection in the deep pelvis. There does not appear to be any significant fluid collection concerning for a urinary bladder leak. The patient's belly is r elatively benign. Her BUN is normal suggesting against urine absorption through the peritoneum. Her urine looks very good and I do not think that she has any problems with her bladder or cystotomy rep air at this time. There is nothing to suggest that she has a vesicovaginal fistula. From our standp oint, I would continue medical management per the SONOGRAPHY TECHNICIAN team and continue her Pradhan catheter as inst ructed. She should remain on antibiotics due to a possible infection. The splenic issues potentiall y may need to be worked up through either a medicine consult or through management by the SONOGRAPHY TECHNICIAN serv ice. This is primarily Dr. Holliday's patient and I am covering for her at the current time. She will resume care of this patient afterwards. I would not recommend any further changes at this time .
[2018-02-22] MEDS: Lactated Ringer's 1,000 ML IV SCH (04:09)
[2018-02-22] MEDS: Metoclopramide HCl 10 MG/2 ML VIAL IVP SCH (05:56)
[2018-02-22] MEDS: Piperacillin/Tazobactam 3.375 GM in Sodium Chloride 0.9% 100 ML IVPB SCH (05:59)
[2018-02-22] MEDS: Ibuprofen 800 MG TAB PO SCH (07:28)
[2018-02-22] MEDS ORDERED: Metoclopramide HCl 10 MG/2 ML VIAL IVP PRN (07:40)
--- NOTE | 2018-02-22 07:52 | PRG ---
DATE OF EXAMINATION: 02/22/2018 SUBJECTIVE: The patient is feeling well, denies nausea or vomiting, tolerating clears, passing flatus. is at bedside. Denies chills. PHYSICAL EXAMINATION: VITAL SIGNS: Stable, afebrile. ABDOMEN: Soft, nontender, nondistended, no rigidity, no rebound. GENITOURINARY: Pradhan catheter adequately secured demonstrating clear dilute urine. EXTREMITIES: No cyanosis, clubbing or edema. LABORATORY DATA: There are no new labs. Patient's chart review demonstrating no significant leukocytosis. White count of 7.9, hemoglobin 11, platelets 223. Creatinine 0.7. Urine culture and blood culture is negative. IMPRESSION AND PLAN: Ms. Young is a 47-year-old female, status post robotic- assisted laparoscopic repair of intraoperative bladder injury, 02/12/2018. The patient admitted, 02/20/2018, secondary to postoperative ileus, with hydration, observation. Her clinical status is significantly improved. CT in the emergency room demonstrated nonspecific fluid collection in the pelvis. The patient does not appear toxic appearing. From a urologic perspective, the patient is tolerating regular diet, which may be advanced today per Gynecology service, maybe discharged home. She does have a followup appointment as previous, next , with a cystogram in the morning of the appointment. She will go home with an indwelling urethral Pradhan catheter as previous, leg bag gravity bag. She has enough ciprofloxacin and Myrbetriq at home. I do not recommend Tylenol 3 as a pain medication, as it is severe constipating. Moreover, she has minimal discomfort. Ultram and Motrin p.r.n. may be provided for pain control, which is minimal. No acute urologic issues. Discharge per Gynecology service. with addition of flagyl. Anticipate patient will be discharged this afternoon. HILARIO
[2018-02-22 08:46] VITALS: BP 102/59; TEMP 97.7
[2018-02-22] MEDS ORDERED: metroNIDAZOLE 500 MG TAB PO SCH (09:00)
[2018-02-22] MEDS: Famotidine/PF 20 mg/2ml Vial SLOW IVP SCH (09:48)
--- NOTE | 2018-02-22 10:33 | PDOC.EVN ---
Event Note - Event Note Event Note: HD3 S: No N/V > 24 hrs, tolerated liquid and regular diet. BM x 2 this AM. No fever, chills or pain. o: Vital Signs (12 hours) Temp Pulse Resp BP BP BP Pulse Ox 02/22/18 08:20 97.7 F 76 16 102/59 L 102/59 L 94 L 02/22/18 04:09 97.8 F 80 20 102/67 102/67 02/22/18 00:00 98.6 F 95 18 101/61 101/61 Weight Admit Weight 163 lb 2.273 oz Weight 163 lb 2.273 oz NAD, A and O nonlabored breathing abd soft, NTTP, inc CDI x 4 Patsy dry A/P: Post op nausea, now resolved, no si/sx of pelvic infection during the stay , no fever off abx. Plan for DC home today, discharge meds reviewed.
[2018-02-22] MEDS ORDERED: Cipro 250 MG TAB PO SCH (20:00)
--- NOTE | 2018-02-23 00:03 | DIS ---
DATE OF ADMISSION: 02/20/2018 DATE OF DISCHARGE: 02/22/2018 ADMISSION DIAGNOSIS: Persistent nausea and vomiting after recent surgery. DISCHARGE DIAGNOSIS: Persistent nausea and vomiting after recent surgery. HOSPITAL COURSE: Ms. Estrella Young was admitted approximately 1 week after Robotic assist total laparo scopic hysterectomy with bilateral salpingectomy, incidental cystotomy. She presented to the ER with persistent nausea and vomiting. Prior to presenting, the patient had called the office and reported at approximately 3 days of nausea and vomiting after a scopolamine patch came off at home. She nitin ed any other symptoms at that time. She had a CT scan as well as lab work completed during her stay. She was admitted, received IV fluids and was kept n.p.o. Over approximately 48 hours of admission, she felt better with bowel rest, passing multiple bowel movements and with the regimen of famotidine nausea resolved after she was demonstrating normal bowel function and no longer had nausea, vomiting , and was hunger, denied any other concerns and take her prescribed medications without difficulty. The patient was discharged home in good condition with followup appointments with myself as well as Ivania Holliday.
== END 2018-02-22 11:56 | disposition home or self-care (01) ==
LOC: ERS 16:07 → 3SW 20:45
PROVIDERS: ADMIT Obstetrics & Gynecology; ATTEND Obstetrics & Gynecology
DX: K91.89 Other postprocedural complications and disorders of digestive system (principal); E11.9 Type 2 diabetes mellitus without complications; E78.5 Hyperlipidemia, unspecified; E03.9 Hypothyroidism, unspecified; Z90.710 Acquired absence of both cervix and uterus; Z79.899 Other long term (current) drug therapy
CPT/HCPCS: 36415; 74177; 80048; 80053; 81003; 81015; 83605; 83690; 85025; 85027; 87040; 87086; 96361; 96365; 96366; 96367; 96375; 96376; A4216; G0378; J1956; J2185; J2270; J2405; J2543; J2550; J2765; J7050; Q0162; S0028

== ENCOUNTER 2018-02-28 07:31 | Outpatient (CLI) | payer BC ==
--- NOTE | 2018-02-28 10:53 | CT ---
CT ABDOMEN AND PELVIS WITH AND WITHOUT CONTRAST: HISTORY: Bladder injury. COMPARISON: CT from 02/20/2018. FINDINGS: On the non-contrast portion of the examination, there is no evidence of urolithiasis or hydronephrosi s. On the post-contrast imaging sequence, the fluid collection in the pelvic cul-de-sac is decreasing in size. Small volume specks of air within the collection are improving. No dilated loops of large or small bowel. Moderate stool burden in the ascending colon and transvers e colon. The hypodensities throughout the spleen are similar to the comparison examination. No evidence of injury of the urinary bladder. No contrast extravasation. No hydroureteronephrosis. The aortoiliac contour is normal. IMPRESSION: 1. Improving fluid collection in the pelvic cul-de-sac. 2. No contrast extravasation. CODE CR (DR. MAHAN AT 9:02 A.M.) POS: RICK
== END 2018-02-28 07:32 | disposition home or self-care (01) ==
LOC: RAD 07:31 → CT 07:32
PROVIDERS: ATTEND Urology
DX: S37.20XA Unspecified injury of bladder, initial encounter (principal)
CPT/HCPCS: 74178

== ENCOUNTER 2018-04-09 07:39 | Outpatient (CLI) | payer BC ==
--- NOTE | 2018-04-09 10:32 | CT ---
CT PELVIS NONCONTRAST: 04/09/2018 HISTORY: A 47-year-old female with S37.20XA (injury of bladder) and N38.46 (incontinence). Status post iatrog enic bladder injury during hysterectomy. Suspected vesicovaginal fistula. TECHNIQUE: After fluoroscopic cystogram and after micturition, a noncontrast CT of the pelvis was performed, wit h sagittal and coronal reconstructions. FINDINGS: The bladder is empty, except for a small amount of air at its anterior-superior portion, due to recen t catheterization. There is a small amount of contrast material and a small amount of air in the vag inal cuff lumen. There is contrast material within what is probably the fistulous tract, which is transversely broad, superiorly and slightly posteriorly, abutting the ventral surface of the vaginal cuff. There is a th inner, linear component of the fistula, traveling inferiorly, oriented to the right of midline as it communicates with the lumen of the vaginal cuff. There is mild diffuse fat stranding within the pelv ic cavity, around the bladder and vaginal cuff. No organized fluid collection outside the fistulous tract. IMPRESSION: Vesicovaginal fistula confirmed. POS: [facility]
--- NOTE | 2018-04-09 10:42 | RAD ---
CYSTOGRAM: Date: 04-09-18 History: 47-year-old female with S37.20XA injury of bladder, N39.46 incontinence. Technique: Following placement of a sterile red rubber tube catheter into the urinary bladder by radiology nurse , iodinated contrast was infused into the bladder under intermittent fluoroscopy. The catheter was dr ained on the table, then removed. The patient voided in the restroom, and post evacuation KUB was obt ained. FINDINGS: The bladder was filled to approximately 250-300 ml. Visible only on the RPO view, there is a focal ex traluminal irregular extension of pooling of contrast material arising from the left posterior superi or surface of the urinary bladder. The post void image demonstrates complete emptying of the urinary bladder but a small amount of residual contrast pooling centered at midline. Subsequent CT shows that this contrast pooling represents the vesicovaginal fistula. IMPRESSION: Positive for vesicovaginal fistula. POS: [facility]
== END 2018-04-09 07:40 | disposition home or self-care (01) ==
LOC: RAD 07:39
PROVIDERS: ATTEND Urology
DX: S37.20XA Unspecified injury of bladder, initial encounter (principal); N39.46 Mixed incontinence; N82.0 Vesicovaginal fistula
CPT/HCPCS: 51600; 72192; 74430

== ENCOUNTER 2019-01-01 13:49 | Outpatient (CLI) | payer BC ==
--- NOTE | 2019-01-01 14:17 | RAD ---
CERVICAL SPINE 4 VIEWS: HISTORY: Cervicalgia. FINDINGS/IMPRESSION: There is loss of cervical lordosis. Mild degenerative changes are present. No fracture, subluxation , or bony destruction is identified. POS: [facility]
== END 2019-01-01 13:50 | disposition home or self-care (01) ==
LOC: RAD-FRANK 13:49
PROVIDERS: ATTEND Nurse Practitioner Family
DX: M54.2 Cervicalgia (principal); M47.812 Spondylosis without myelopathy or radiculopathy, cervical region
CPT/HCPCS: 72040

== ENCOUNTER 2019-03-04 08:32 | Outpatient (CLI) | payer BC ==
--- NOTE | 2019-03-04 10:43 | MMO ---
Bilateral MAMMO Bilat Screen [facility]. CLINICAL HISTORY: Patient is 48 years old and is seen for screening. The patient has the following family history of breast cancer: maternal aunt. The patient has no personal history of cancer. VIEWS: The views performed were: bilateral craniocaudal with tomosynthesis and bilateral mediolateral oblique with tomosynthesis. FILMS COMPARED: The present examination has been compared to a prior imaging study performed at [facility] on 01/15/2018. MAMMOGRAM FINDINGS: There are scattered fibroglandular densities. Benign calcifications are noted bilaterally. There are no suspicious masses, suspicious calcifications, or new areas of architectural distortion. IMPRESSION: THERE IS NO MAMMOGRAPHIC EVIDENCE OF MALIGNANCY. A ROUTINE FOLLOW-UP MAMMOGRAM IN 1 YEAR IS RECOMMENDED. THE RESULTS OF THIS EXAM WERE SENT TO THE PATIENT. ACR BI-RADS Category 2 - Benign finding MAMMOGRAPHY NOTE: 1. A negative mammogram report should not delay a biopsy if a dominant of clinically suspicious mass is present. 2. Approximately 10% to 15% of breast cancers are not detected by mammography. 3. Adenosis and dense breasts may obscure an underlying neoplasm.
== END 2019-03-04 08:33 | disposition home or self-care (01) ==
LOC: BICMAMMO 08:32
PROVIDERS: ATTEND Nurse Practitioner Family
DX: Z12.31 Encounter for screening mammogram for malignant neoplasm of breast (principal); Z80.3 Family history of malignant neoplasm of breast
CPT/HCPCS: 77063; 77067

== ENCOUNTER 2020-08-13 13:33 | Outpatient (CLI) | payer BC ==
--- NOTE | 2020-08-13 14:34 | ULT ---
THYROID ULTRASOUND INDICATION: Follow-up thyroid nodule TECHNIQUE: Grayscale and color Doppler images were obtained of the thyroid gland. COMPARISON: Thyroid ultrasound dated December 14, 2017 FINDINGS: Right thyroid lobe: The right thyroid lobe measures 4.3 x 1.5 x 1.3 cm. Thyroid isthmus: The thyroid isthmus measures 0.3 cm. Left thyroid lobe: The left thyroid lobe measures 4.2 x 1.3 x 0.9 cm. There is a 8.0 x 4.0 x 5.0 mm h ypoechoic solid nodule within the inferior pole of the left thyroid lobe. This is mildly increased in size from the prior exam. IMPRESSION: 1. 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 This lesion is below 1.5 cm in size; however, due to the interval growth, would recommend a follow-up thyroid ultrasound in one year to document stability.
--- NOTE | 2020-08-13 16:57 | MRI ---
CT CERVICAL SPINE WITHOUT CONTRAST: 08/13/20 INDICATIONS: Neck pain. FINDINGS: Cervical vertebrae maintain normal height and alignment. The disc spaces are preserved. Cervical vert ebra exhibit normal signal. Very mild degenerative spurring from the cervical vertebrae. C2-3: No significant disc bulge or spondylosis. No significant abnormality. C3-4: Mild disc bulge and spondylosis flatten the thecal sac and mildly efface the anterior subarachn oid space. No cord impingement. No evidence of significant foraminal stenosis. C4-5: Mild disc bulge and spondylosis efface the anterior subarachnoid space. No significant cord imp ingement. No central canal or foraminal stenosis. C5-6: Disc bulge and spondylosis efface the anterior subarachnoid space. Mild left foraminal narrowin g. No cord impingement or central canal stenosis. C6-7: Posterior disc bulge and spondylosis abuts and mildly compresses the anterior cord at this leve l. There is a disc osteophyte complex projecting centrally which impinges on the anterior cord. No si gnificant foraminal stenosis. Cervical cord signal is normally maintained. IMPRESSION: 1. Focal disc protrusion with spondylosis at C6-7 mildly compresses the anterior cord centrally and slightly to the left of midline. 2. Disc bulge and spondylosis at the other levels as described. POS: [facility]
== END 2020-08-13 13:34 | disposition home or self-care (01) ==
LOC: BICULT 13:33
PROVIDERS: ATTEND Registered Nurse
DX: E04.1 Nontoxic single thyroid nodule (principal); M54.2 Cervicalgia; M50.223 Other cervical disc displacement at C6-C7 level; M47.812 Spondylosis without myelopathy or radiculopathy, cervical region
CPT/HCPCS: 72141; 76536

== ENCOUNTER 2021-01-10 10:03 | Emergency (ER) | payer BC ==
[2021-01-10] MEDS ORDERED: Ketorolac Tromethamine 30 MG/ML VIAL ONE (11:07)
[2021-01-10] MEDS ORDERED: Ondansetron PF 4 MG/2 ML Vial ONE (11:07)
[2021-01-10 11:44] LABS: Bilirubin Negative (Negative); Blood, Urine Negative (Negative); Clarity Clear (Clear); Glucose, Urine (Dipstick) Normal (Negative); Ketone, Urine 150 mg/dL (Negative); Leukocyte Negative Leu/uL (Negative); Nitrite Negative (Negative); Protein, Urine (Dipstick) Negative (Neg-Trace); Specific Gravity, Urine 1.016 (1.002-1.036); Urobilinogen Normal mg/dL (Less than 2); pH, Urine 5.5 (5.0-9.0)
[2021-01-10 11:52] LABS: ALT (SGPT) 28 U/L (8-55); AST (SGOT) 34 U/L (5-34); Albumin 4.1 g/dL (3.5-5.0); Alkaline Phosphatase 56 U/L (40-110); Anion Gap 16 mmol/L (10-20); BUN (Urea Nitrogen) 8 mg/dL (9.8-20.1); Bilirubin, Total 0.4 mg/dL (0.2-1.2); Calc. Creatinine Clearance 0 mL/min (70-130); Calcium 8.9 mg/dL (7.8-10.44); Carbon Dioxide 21 mmol/L (22-29); Chloride 104 mmol/L (98-107); Globulin 3.3 g/dL (2.4-3.5); Glucose 124 mg/dL (70-105); Lipase 26 U/L (8-78); Potassium 4.4 mmol/L (3.5-5.1); Protein, Total 7.4 g/dL (6.0-8.3); Sodium 137 mmol/L (136-145)
[2021-01-10 11:57] LABS: Band 1 % (5-11); Lymphocytes 30 % (21-51); Monocytes 18 % (0-10); Neutrophil 50 % (42-75); Reactive Lymphocytes 1 % (0-10)
[2021-01-10 12:00] LABS: Hemoglobin 14.3 g/dL (12.0-16.0); MDiff Complete? YES; Mean Corpuscular Hemoglobin 30.9 pg (27.0-31.0); Mean Corpuscular Volume 88.1 fL (78.0-98.0); Mean Platelet Volume 7.7 fL (7.4-10.4); Platelet Count 143 thou/uL (130-400); RBC Distribution Width 11.9 % (11.5-14.5); Red Blood Cell (RBC) Count 4.64 mill/uL (4.20-5.40); White Blood Cell (WBC) Count 3.5 thou/uL (4.8-10.8)
[2021-01-10 16:27] LABS: SARS-CoV-2 PCR by NAA DETECTED (NotDetected)
== END 2021-01-10 14:11 | disposition home or self-care (01) ==
LOC: ERS 10:03
DX: U07.1 COVID-19 (principal); E11.9 Type 2 diabetes mellitus without complications; E03.9 Hypothyroidism, unspecified; Z79.899 Other long term (current) drug therapy
CPT/HCPCS: 36415; 71045; 80053; 81003; 83690; 85025; 87635; 93005; 96374; 96375; J1885; J2405; U0003; U0005

== ENCOUNTER 2024-06-05 13:56 | Outpatient (CLI) | payer BC | END 2024-06-05 13:57 | disposition home or self-care (01) | LOC: BICMAMMO 13:56 | PROVIDERS: ATTEND Nurse Practitioner Family | DX: N64.9 Disorder of breast, unspecified (principal) | CPT/HCPCS: 76642; 77066; G0279 ==